=== PATIENT | female | born 1940 | race African-American/Black ===

== ENCOUNTER 2022-10-26 22:54 | Inpatient (IN) | payer MEDICAID ==
[~2022-10-26] VITALS: Ht 165.1 cm; Wt 66.7 kg
[2022-10-27 00:21] LABS: BASOPHILS % 0.6 % (0.0-2.0); HEMATOCRIT. 38.5 % (36.0-48.0); HEMOGLOBIN. 13.2 g/dL (12.0-16.0); LYMPHOCYTES % 36.8 % (20.0-50.0); MEAN CORPUSCULAR HEMOGLOBIN 31.5 pg (28.0-32.0); MEAN CORPUSCULAR VOLUME 92.1 fL (81.0-99.0); MEAN PLATELET VOLUME 9.7 fl (7.4-10.4); MONOCYTES % 14.5 % (2.0-8.0); NEUTROPHILS % 48.1 % (40.0-76.0); PLATELET 120 x1000/uL (130-400); RED BLOOD CELL COUNT 4.18 mill/uL (4.2-5.4)
[2022-10-27 00:25] LABS: CHLORIDE 104 mEq/L (98-107)
[2022-10-27 01:38] LABS: CREATINE KINASE 7625 IU/L (26-192)
[2022-10-27] MEDS ORDERED: SODIUM CHLORIDE 0.9% 1,000 ML IV ONE (03:30)
[2022-10-27] MEDS ORDERED: ONDANSETRON HCL 4MG/2ML INJ IV PRN (08:30)
[2022-10-27 10:39] VITALS: BP 148/68
[2022-10-27 10:40] VITALS: BP 148/68
[2022-10-27 12:00] VITALS: BP 136/76
[2022-10-27] MEDS: SODIUM CHLORIDE 0.9% 1,000 ML IV SCH ×2 (12:01→22:00)
[2022-10-27] MEDS: ENOXAPARIN 40MG/0.4ML SYR SUBCUT SCH (12:31)
[2022-10-27 16:00] VITALS: BP 147/66
[2022-10-27 16:26] LABS: CLARITY URINE CLOUDY (CLEAR); COLOR URINE DARK YELLOW (YELLOW); KETONES URINE NEGATIVE (NEGATIVE); LEUKOCYTE ESTERASE URINE 1+ (NEGATIVE); NITRITE URINE NEGATIVE (NEGATIVE); OCCULT BLOOD URINE 3+ (NEGATIVE); PH URINE 5.5 (4.5-8.0); PROTEIN URINE 3+ (NEGATIVE); SPECIFIC GRAVITY URINE 1.031 (1.005-1.030)
[2022-10-27] MEDS ORDERED: TIMO5DRO32 EACHEYE (18:00)
[2022-10-27] MEDS ORDERED: LATA2.5D4 EACHEYE (18:00)
[2022-10-27] MEDS ORDERED: B1/B1TAB5 MT (18:00)
[2022-10-27] MEDS ORDERED: SIME80TA15 PO (18:00)
[2022-10-27] MEDS ORDERED: ATOR20TA65 MT (18:00)
[2022-10-27] MEDS ORDERED: OMEP20CA14 MT (18:00)
[2022-10-27 20:00] VITALS: BP 142/69
[2022-10-28] VITALS: BP 151/81
[2022-10-28 04:00] VITALS: BP 138/65
[2022-10-28 06:03] LABS: CHLORIDE 108 mEq/L (98-107)
[2022-10-28 06:07] LABS: BASOPHILS % 0.5 % (0.0-2.0); HEMATOCRIT. 39.1 % (36.0-48.0); HEMOGLOBIN. 13.3 g/dL (12.0-16.0); LYMPHOCYTES % 43.4 % (20.0-50.0); MEAN CORPUSCULAR HEMOGLOBIN 31.5 pg (28.0-32.0); MEAN CORPUSCULAR VOLUME 92.3 fL (81.0-99.0); MEAN PLATELET VOLUME 10.4 fl (7.4-10.4); MONOCYTES % 13.3 % (2.0-8.0); NEUTROPHILS % 42.8 % (40.0-76.0); PLATELET 100 x1000/uL (130-400); RED BLOOD CELL COUNT 4.23 mill/uL (4.2-5.4); RED CELL DISTRIBUTION WIDTH 21.4 % (11.6-14.6)
[2022-10-28 06:43] LABS: CREATINE KINASE 5509 IU/L (26-192)
[2022-10-28 08:00] VITALS: BP 111/66
[2022-10-28] MEDS: SODIUM CHLORIDE 0.9% 1,000 ML IV SCH ×2 (08:09→17:07)
[2022-10-28 12:00] VITALS: BP 165/72
[2022-10-28] MEDS: LOSARTAN POTASSIUM 100 MG TABLET PO SCH (13:19)
[2022-10-28] MEDS: ENOXAPARIN 40MG/0.4ML SYR SUBCUT SCH (13:19)
[2022-10-28 16:00] VITALS: BP 155/74
[2022-10-28] MEDS ORDERED: SERTRALINE HCL 50MG TABLET PO SCH (16:30)
[2022-10-28 20:00] VITALS: BP 158/73
[2022-10-29] VITALS: BP 150/63
[2022-10-29] MEDS: SODIUM CHLORIDE 0.9% 1,000 ML IV SCH (01:20)
[2022-10-29 04:00] VITALS: BP 147/72
[2022-10-29 08:00] VITALS: BP 145/66
[2022-10-29] MEDS: LOSARTAN POTASSIUM 100 MG TABLET PO SCH (08:42)
[2022-10-29 12:00] VITALS: BP 140/66
[2022-10-29] MEDS: ENOXAPARIN 40MG/0.4ML SYR SUBCUT SCH (12:05)
[2022-10-29] MEDS: FUROSEMIDE 40MG/4ML VIAL IVP SCH ×2 (13:13→17:32)
[2022-10-29 14:12] LABS: INR 1.4; PROTHROMBIN TIME 14.9 sec (9.6-11.0)
[2022-10-29 14:39] LABS: HEPATITIS B SURFACE ANTIGEN NEGATIVE
[2022-10-29 16:00] VITALS: BP 140/81
[2022-10-29 20:00] VITALS: BP 139/56
[2022-10-30] VITALS: BP 149/62
[2022-10-30 04:00] VITALS: BP 130/68
[2022-10-30] MEDS: FUROSEMIDE 40MG/4ML VIAL IVP SCH ×2 (05:11→17:13)
[2022-10-30 06:17] LABS: BASOPHILS % 0.8 % (0.0-2.0); HEMATOCRIT. 39.7 % (36.0-48.0); HEMOGLOBIN. 13.3 g/dL (12.0-16.0); LYMPHOCYTES % 27.3 % (20.0-50.0); MEAN CORPUSCULAR HEMOGLOBIN 31.4 pg (28.0-32.0); MEAN CORPUSCULAR VOLUME 93.7 fL (81.0-99.0); MEAN PLATELET VOLUME 10.3 fl (7.4-10.4); MONOCYTES % 9.5 % (2.0-8.0); NEUTROPHILS % 62.4 % (40.0-76.0); PLATELET 110 x1000/uL (130-400); RED BLOOD CELL COUNT 4.24 mill/uL (4.2-5.4); RED CELL DISTRIBUTION WIDTH 21.2 % (11.6-14.6)
[2022-10-30 08:00] VITALS: BP 142/68
[2022-10-30 08:09] LABS: CHLORIDE 106 mEq/L (98-107)
[2022-10-30] MEDS: LOSARTAN POTASSIUM 100 MG TABLET PO SCH (09:40)
[2022-10-30 12:00] VITALS: BP 133/66
[2022-10-30] MEDS ORDERED: FUROSEMIDE 40MG/4ML VIAL IVP NR (12:45)
[2022-10-30] MEDS ORDERED: METOLAZONE 2.5MG TABLET PO NR (12:45)
[2022-10-30] MEDS: ENOXAPARIN 40MG/0.4ML SYR SUBCUT SCH (12:50)
[2022-10-30 16:00] VITALS: BP 135/58
[2022-10-31] VITALS: BP 124/67
[2022-10-31 04:00] VITALS: BP 117/51
[2022-10-31] MEDS: FUROSEMIDE 40MG/4ML VIAL IVP SCH ×2 (05:15→17:06)
[2022-10-31 08:00] VITALS: BP 128/53
[2022-10-31] MEDS: LOSARTAN POTASSIUM 100 MG TABLET PO SCH (09:05)
[2022-10-31] MEDS ORDERED: METOLAZONE 2.5MG TABLET PO NR (11:30)
[2022-10-31 12:00] VITALS: BP 142/66
[2022-10-31] MEDS: ENOXAPARIN 40MG/0.4ML SYR SUBCUT SCH (12:13)
[2022-10-31 13:12] LABS: CHLORIDE 99 mEq/L (98-107)
[2022-10-31 16:00] VITALS: BP 143/63
[2022-10-31 20:00] VITALS: BP 123/63
[2022-11-01] VITALS: BP 123/62
[2022-11-01 04:00] VITALS: BP 136/56
[2022-11-01] MEDS: FUROSEMIDE 40MG/4ML VIAL IVP SCH ×2 (06:08→22:00)
[2022-11-01 08:00] VITALS: BP 128/53
[2022-11-01] MEDS: LOSARTAN POTASSIUM 100 MG TABLET PO SCH (09:01)
[2022-11-01] MEDS: ENOXAPARIN 40MG/0.4ML SYR SUBCUT SCH (14:16)
[2022-11-01] MEDS: METHYLPREDNISOLONE SOD SUCC 40 MG/ML VIAL IV SCH ×2 (14:16→22:00)
[2022-11-01 16:00] VITALS: BP 103/46
[2022-11-01 18:21] LABS: CHLORIDE 96 mEq/L (98-107)
[2022-11-01 20:00] VITALS: BP 128/65
[2022-11-01] MEDS: FAMOTIDINE 20MG TABLET PO SCH (22:00)
[2022-11-02] VITALS: BP 125/62
[2022-11-02 04:00] VITALS: BP 133/55
[2022-11-02] MEDS: FUROSEMIDE 40MG/4ML VIAL IVP SCH (06:05)
[2022-11-02] MEDS: METHYLPREDNISOLONE SOD SUCC 40 MG/ML VIAL IV SCH ×3 (06:05→21:23)
[2022-11-02 08:00] VITALS: BP 133/62
[2022-11-02] MEDS: LOSARTAN POTASSIUM 100 MG TABLET PO SCH (10:00)
[2022-11-02 12:00] VITALS: BP 130/65
[2022-11-02] MEDS: ENOXAPARIN 40MG/0.4ML SYR SUBCUT SCH (15:06)
[2022-11-02 16:00] VITALS: BP 111/62
[2022-11-02 20:00] VITALS: BP 132/62
[2022-11-02] MEDS: FAMOTIDINE 20MG TABLET PO SCH (21:23)
[2022-11-03] VITALS: BP 133/63
[2022-11-03] MEDS: METHYLPREDNISOLONE SOD SUCC 40 MG/ML VIAL IV SCH ×2 (06:00→14:01)
[2022-11-03 08:00] VITALS: BP 138/61
[2022-11-03] MEDS: LOSARTAN POTASSIUM 100 MG TABLET PO SCH (11:39)
[2022-11-03 12:00] VITALS: BP 145/73
[2022-11-03] MEDS: ENOXAPARIN 40MG/0.4ML SYR SUBCUT SCH (13:07)
[2022-11-03 16:00] VITALS: BP 138/70
[2022-11-03 20:00] VITALS: BP 147/71
[2022-11-03] MEDS: FAMOTIDINE 20MG TABLET PO SCH (21:55)
[2022-11-04] VITALS: BP 137/60
[2022-11-04] MEDS: METHYLPREDNISOLONE SOD SUCC 40 MG/ML VIAL IV SCH ×4 (00:19→18:18)
[2022-11-04 04:00] VITALS: BP 138/65
[2022-11-04 07:30] LABS: BASOPHILS % 0.3 % (0.0-2.0); HEMATOCRIT. 43.4 % (36.0-48.0); HEMOGLOBIN. 14.6 g/dL (12.0-16.0); LYMPHOCYTES % 16.3 % (20.0-50.0); MEAN CORPUSCULAR VOLUME 95.2 fL (81.0-99.0); MEAN PLATELET VOLUME 10.1 fl (7.4-10.4); MONOCYTES % 7.1 % (2.0-8.0); NEUTROPHILS % 76.3 % (40.0-76.0); PLATELET 159 x1000/uL (130-400); RED BLOOD CELL COUNT 4.55 mill/uL (4.2-5.4); RED CELL DISTRIBUTION WIDTH 21.2 % (11.6-14.6)
[2022-11-04 07:45] LABS: CHLORIDE 94 mEq/L (98-107)
[2022-11-04 08:00] VITALS: BP 124/57
[2022-11-04] MEDS: LOSARTAN POTASSIUM 100 MG TABLET PO SCH (08:18)
[2022-11-04 12:00] VITALS: BP 123/52
[2022-11-04] MEDS: ENOXAPARIN 40MG/0.4ML SYR SUBCUT SCH (15:14)
[2022-11-04 16:00] VITALS: BP 138/55
[2022-11-04 18:12] LABS: CREATINE KINASE 502 IU/L (26-192)
[2022-11-04 20:00] VITALS: BP 116/59
[2022-11-04] MEDS: FAMOTIDINE 20MG TABLET PO SCH (21:11)
[2022-11-04] MEDS: HYDROCODONE/ACETAMINOPHEN 5/325MG TABLET PO PRN (21:12)
[2022-11-05] VITALS: BP 120/77
[2022-11-05] MEDS: METHYLPREDNISOLONE SOD SUCC 40 MG/ML VIAL IV SCH ×4 (01:39→17:58)
[2022-11-05 04:00] VITALS: BP 120/77
[2022-11-05 08:00] VITALS: BP 130/64
[2022-11-05] MEDS: LOSARTAN POTASSIUM 100 MG TABLET PO SCH (09:13)
[2022-11-05] MEDS ORDERED: DEXTROSE 50% WATER 50ML SYRINGE IV PRN (09:15)
[2022-11-05 11:49] VITALS: BP 135/67
[2022-11-05] MEDS: ENOXAPARIN 40MG/0.4ML SYR SUBCUT SCH (12:56)
[2022-11-05] MEDS: BLOOD SUGAR DIAGNOSTIC STRIP TEST SCH ×3 (12:56→21:00)
[2022-11-05] MEDS: INSULIN LISPRO 100 UNITS/ML SUBCUT SCH ×3 (13:18→21:05)
[2022-11-05 15:31] VITALS: BP 135/62
[2022-11-05] MEDS ORDERED: LACTULOSE 20G/30ML UDC PO PRN (16:15)
[2022-11-05 20:00] VITALS: BP 138/74
[2022-11-05] MEDS ORDERED: NALOXONE HCL 0.4MG/ML VIAL IV PRN (20:45)
[2022-11-05] MEDS: FAMOTIDINE 20MG TABLET PO SCH (21:05)
[2022-11-05] MEDS: LATANOPROST 0.005% OPHTH DROPS 2.5ML EACHEYE SCH (21:08)
[2022-11-06] VITALS: BP 130/72
[2022-11-06] MEDS: METHYLPREDNISOLONE SOD SUCC 40 MG/ML VIAL IV SCH ×5 (00:25→23:59)
[2022-11-06] MEDS: BLOOD SUGAR DIAGNOSTIC STRIP TEST SCH ×4 (06:36→20:16)
[2022-11-06 07:42] LABS: CHLORIDE 95 mEq/L (98-107)
[2022-11-06 08:00] VITALS: BP 137/84
[2022-11-06] MEDS: TIMOLOL MALEATE 0.5% OPHTH DROPS 5ML EACHEYE SCH (08:34)
[2022-11-06] MEDS: DOCUSATE SODIUM 250MG CAPSULE PO SCH (08:34)
[2022-11-06] MEDS: LOSARTAN POTASSIUM 100 MG TABLET PO SCH (08:34)
[2022-11-06] MEDS: INSULIN LISPRO 100 UNITS/ML SUBCUT SCH ×4 (09:52→20:36)
[2022-11-06 10:08] LABS: ANTI-DNA DOUBLE STRANDED QUANT < 1 IU/mL (0-9); RNP ANTIBODY 0.7 AI (0.0-0.9)
[2022-11-06 12:00] VITALS: BP 143/70
[2022-11-06] MEDS: FOLIC ACID 1MG TABLET PO SCH (12:40)
[2022-11-06] MEDS ORDERED: METHOTREXATE SODIUM 2 . 5MG TABLET PO SCH ×3 (13:00→22:00)
[2022-11-06] MEDS: ENOXAPARIN 40MG/0.4ML SYR SUBCUT SCH (13:54)
[2022-11-06 16:00] VITALS: BP 112/57
[2022-11-06] MEDS: LATANOPROST 0.005% OPHTH DROPS 2.5ML EACHEYE SCH (20:35)
[2022-11-06] MEDS: FAMOTIDINE 20MG TABLET PO SCH (20:35)
[2022-11-07] MEDS: HYDROCODONE/ACETAMINOPHEN 5/325MG TABLET PO PRN ×3 (03:51→10:36)
[2022-11-07 04:00] VITALS: BP 128/72
[2022-11-07] MEDS: METHYLPREDNISOLONE SOD SUCC 40 MG/ML VIAL IV SCH ×3 (05:18→18:44)
[2022-11-07] MEDS: BLOOD SUGAR DIAGNOSTIC STRIP TEST SCH ×4 (07:20→21:56)
[2022-11-07] MEDS: INSULIN LISPRO 100 UNITS/ML SUBCUT SCH ×4 (07:50→22:40)
[2022-11-07 08:00] VITALS: BP 128/77
[2022-11-07] MEDS: DOCUSATE SODIUM 250MG CAPSULE PO SCH (10:19)
[2022-11-07] MEDS: FOLIC ACID 1MG TABLET PO SCH (10:19)
[2022-11-07] MEDS: TIMOLOL MALEATE 0.5% OPHTH DROPS 5ML EACHEYE SCH (10:20)
[2022-11-07] MEDS: LOSARTAN POTASSIUM 100 MG TABLET PO SCH (10:32)
[2022-11-07 12:00] VITALS: BP 134/66
[2022-11-07] MEDS: ENOXAPARIN 40MG/0.4ML SYR SUBCUT SCH (14:43)
[2022-11-07 16:00] VITALS: BP 128/60
[2022-11-07 20:00] VITALS: BP 144/69
[2022-11-07] MEDS: LATANOPROST 0.005% OPHTH DROPS 2.5ML EACHEYE SCH (21:58)
[2022-11-07] MEDS: FAMOTIDINE 20MG TABLET PO SCH (21:58)
[2022-11-08] VITALS: BP 151/77
[2022-11-08] MEDS: METHYLPREDNISOLONE SOD SUCC 40 MG/ML VIAL IV SCH ×4 (00:57→18:04)
[2022-11-08 04:00] VITALS: BP 151/70
[2022-11-08 04:12] LABS: ANGIOTENSION CONVERTING ENZYME 94 U/L (14-82)
[2022-11-08] MEDS: BLOOD SUGAR DIAGNOSTIC STRIP TEST SCH ×4 (07:20→20:33)
[2022-11-08] MEDS: PREDNISONE 20MG TABLET PO SCH ×3 (07:50→17:50)
[2022-11-08 08:00] VITALS: BP 147/72
[2022-11-08] MEDS: DOCUSATE SODIUM 250MG CAPSULE PO SCH (09:20)
[2022-11-08] MEDS: LOSARTAN POTASSIUM 100 MG TABLET PO SCH (09:20)
[2022-11-08] MEDS: FOLIC ACID 1MG TABLET PO SCH (09:20)
[2022-11-08] MEDS: TIMOLOL MALEATE 0.5% OPHTH DROPS 5ML EACHEYE SCH (09:22)
[2022-11-08] MEDS: INSULIN LISPRO 100 UNITS/ML SUBCUT SCH ×4 (09:41→20:33)
[2022-11-08 12:00] VITALS: BP 153/70
[2022-11-08] MEDS: ENOXAPARIN 40MG/0.4ML SYR SUBCUT SCH (13:07)
[2022-11-08 15:06] LABS: HLA CLASS 1 ANTIBODY Negative (Negative); IIb/IIIa ANTIBODY Positive (Negative); Ia/IIa ANTIBODY Negative (Negative); Ib/IX ANTIBODY Negative (Negative)
[2022-11-08 16:00] VITALS: BP 135/56
[2022-11-08 17:08] LABS: ANA IFA Positive (.)
[2022-11-08 20:00] VITALS: BP 140/69
[2022-11-08] MEDS: FAMOTIDINE 20MG TABLET PO SCH (20:31)
[2022-11-08] MEDS: LATANOPROST 0.005% OPHTH DROPS 2.5ML EACHEYE SCH (21:15)
[2022-11-09] VITALS: BP 140/77
[2022-11-09 04:00] VITALS: BP 141/74
[2022-11-09] MEDS: BLOOD SUGAR DIAGNOSTIC STRIP TEST SCH ×4 (07:42→21:00)
[2022-11-09 08:00] VITALS: BP 143/79
[2022-11-09] MEDS: PREDNISONE 20MG TABLET PO SCH ×2 (08:25→18:24)
[2022-11-09] MEDS: FOLIC ACID 1MG TABLET PO SCH (08:25)
[2022-11-09] MEDS: DOCUSATE SODIUM 250MG CAPSULE PO SCH (08:25)
[2022-11-09] MEDS: LOSARTAN POTASSIUM 100 MG TABLET PO SCH (08:26)
[2022-11-09] MEDS: INSULIN LISPRO 100 UNITS/ML SUBCUT SCH ×4 (08:29→23:47)
[2022-11-09] MEDS: TIMOLOL MALEATE 0.5% OPHTH DROPS 5ML EACHEYE SCH (09:00)
[2022-11-09 12:00] VITALS: BP 136/67
[2022-11-09 16:00] VITALS: BP 134/94
[2022-11-09] MEDS: ENOXAPARIN 40MG/0.4ML SYR SUBCUT SCH (18:24)
[2022-11-09 20:00] VITALS: BP 119/58
[2022-11-09] MEDS: LATANOPROST 0.005% OPHTH DROPS 2.5ML EACHEYE SCH (21:22)
[2022-11-09] MEDS: FAMOTIDINE 20MG TABLET PO SCH (21:22)
[2022-11-09 21:28] LABS: BASOPHILS % 0.2 % (0.0-2.0); EOSINOPHILS % 0.1 % (0.0-5.0); HEMATOCRIT. 52.2 % (36.0-48.0); HEMOGLOBIN. 17.4 g/dL (12.0-16.0); LYMPHOCYTES % 23.7 % (20.0-50.0); MEAN CORPUSCULAR VOLUME 98.6 fL (81.0-99.0); MEAN PLATELET VOLUME 9.5 fl (7.4-10.4); MONOCYTES % 9.1 % (2.0-8.0); NEUTROPHILS % 66.9 % (40.0-76.0); PLATELET 97 x1000/uL (130-400); RED BLOOD CELL COUNT 5.29 mill/uL (4.2-5.4); RED CELL DISTRIBUTION WIDTH 20.3 % (11.6-14.6)
[2022-11-09 21:42] LABS: CHLORIDE 92 mEq/L (98-107)
[2022-11-10] VITALS: BP 121/62
[2022-11-10] MEDS: ACETAMINOPHEN 325MG TABLET PO PRN (02:53)
[2022-11-10 04:00] VITALS: BP 137/69
[2022-11-10] MEDS: INSULIN LISPRO 100 UNITS/ML SUBCUT SCH ×4 (07:50→21:10)
[2022-11-10 08:00] VITALS: BP 135/65
[2022-11-10] MEDS: BLOOD SUGAR DIAGNOSTIC STRIP TEST SCH ×4 (08:11→21:11)
[2022-11-10] MEDS: TIMOLOL MALEATE 0.5% OPHTH DROPS 5ML EACHEYE SCH (10:49)
[2022-11-10] MEDS: DOCUSATE SODIUM 250MG CAPSULE PO SCH (10:49)
[2022-11-10] MEDS: FOLIC ACID 1MG TABLET PO SCH (10:49)
[2022-11-10] MEDS: PREDNISONE 20MG TABLET PO SCH ×3 (10:49→18:33)
[2022-11-10] MEDS: LOSARTAN POTASSIUM 100 MG TABLET PO SCH (10:50)
[2022-11-10 12:00] VITALS: BP 131/59
[2022-11-10] MEDS: ENOXAPARIN 40MG/0.4ML SYR SUBCUT SCH (14:26)
[2022-11-10 16:00] VITALS: BP 110/53
[2022-11-10 20:00] VITALS: BP 105/60
[2022-11-10] MEDS: FAMOTIDINE 20MG TABLET PO SCH (21:00)
[2022-11-10] MEDS: LATANOPROST 0.005% OPHTH DROPS 2.5ML EACHEYE SCH (21:10)
[2022-11-11] VITALS: BP 111/59
[2022-11-11 04:00] VITALS: BP 134/75
[2022-11-11] MEDS: BLOOD SUGAR DIAGNOSTIC STRIP TEST SCH ×3 (07:20→21:37)
[2022-11-11] MEDS: PREDNISONE 20MG TABLET PO SCH (07:50)
[2022-11-11 08:00] VITALS: BP 126/57
[2022-11-11] MEDS: DOCUSATE SODIUM 250MG CAPSULE PO SCH (09:06)
[2022-11-11] MEDS: FOLIC ACID 1MG TABLET PO SCH (09:06)
[2022-11-11] MEDS: LOSARTAN POTASSIUM 100 MG TABLET PO SCH (09:06)
[2022-11-11] MEDS: TIMOLOL MALEATE 0.5% OPHTH DROPS 5ML EACHEYE SCH (09:07)
[2022-11-11 12:00] VITALS: BP 119/64
[2022-11-11] MEDS: INSULIN LISPRO 100 UNITS/ML SUBCUT SCH ×3 (12:00→21:00)
[2022-11-11] MEDS: ENOXAPARIN 40MG/0.4ML SYR SUBCUT SCH (13:00)
[2022-11-11 16:00] VITALS: BP 101/59
[2022-11-11 20:00] VITALS: BP 132/59
[2022-11-11] MEDS: LATANOPROST 0.005% OPHTH DROPS 2.5ML EACHEYE SCH (21:23)
[2022-11-11] MEDS: ACETAMINOPHEN 325MG TABLET PO PRN (22:09)
[2022-11-11] MEDS: FAMOTIDINE 20MG TABLET PO SCH (22:09)
[2022-11-12] VITALS: BP 114/46
[2022-11-12 04:00] VITALS: BP 121/50
[2022-11-12] MEDS: BLOOD SUGAR DIAGNOSTIC STRIP TEST SCH ×2 (06:27→21:34)
[2022-11-12 07:01] LABS: BASOPHILS % 0.2 % (0.0-2.0); EOSINOPHILS % 0.3 % (0.0-5.0); HEMATOCRIT. 44.6 % (36.0-48.0); HEMOGLOBIN. 15.4 g/dL (12.0-16.0); LYMPHOCYTES % 35.4 % (20.0-50.0); MEAN CORPUSCULAR HEMOGLOBIN 33.2 pg (28.0-32.0); MEAN PLATELET VOLUME 9.6 fl (7.4-10.4); NEUTROPHILS % 54.1 % (40.0-76.0); PLATELET 114 x1000/uL (130-400); RED BLOOD CELL COUNT 4.64 mill/uL (4.2-5.4); RED CELL DISTRIBUTION WIDTH 18.1 % (11.6-14.6)
[2022-11-12 07:38] LABS: CHLORIDE 92 mEq/L (98-107)
[2022-11-12 08:00] VITALS: BP 115/61
[2022-11-12] MEDS: TIMOLOL MALEATE 0.5% OPHTH DROPS 5ML EACHEYE SCH (09:00)
[2022-11-12] MEDS: DOCUSATE SODIUM 250MG CAPSULE PO SCH (10:24)
[2022-11-12] MEDS: LOSARTAN POTASSIUM 100 MG TABLET PO SCH (10:24)
[2022-11-12] MEDS: ACETAMINOPHEN 325MG TABLET PO PRN (10:24)
[2022-11-12] MEDS: FOLIC ACID 1MG TABLET PO SCH (10:25)
[2022-11-12 12:00] VITALS: BP 115/55
[2022-11-12] MEDS: INSULIN LISPRO 100 UNITS/ML SUBCUT SCH ×3 (12:20→21:00)
[2022-11-12] MEDS: ENOXAPARIN 40MG/0.4ML SYR SUBCUT SCH (13:41)
[2022-11-12 16:00] VITALS: BP 100/51
[2022-11-12 20:00] VITALS: BP 126/62
[2022-11-12] MEDS: SODIUM CHLORIDE 0.9% 1,000 ML IV SCH (21:00)
[2022-11-12] MEDS: FAMOTIDINE 20MG TABLET PO SCH (21:34)
[2022-11-12] MEDS: LATANOPROST 0.005% OPHTH DROPS 2.5ML EACHEYE SCH (21:34)
[2022-11-13] VITALS: BP 122/54
[2022-11-13 04:00] VITALS: BP 114/50
[2022-11-13] MEDS: BLOOD SUGAR DIAGNOSTIC STRIP TEST SCH ×4 (07:20→20:10)
[2022-11-13] MEDS: INSULIN LISPRO 100 UNITS/ML SUBCUT SCH ×4 (07:50→20:11)
[2022-11-13 08:00] VITALS: BP 109/54
[2022-11-13] MEDS: TIMOLOL MALEATE 0.5% OPHTH DROPS 5ML EACHEYE SCH (09:42)
[2022-11-13] MEDS: LOSARTAN POTASSIUM 100 MG TABLET PO SCH (09:42)
[2022-11-13] MEDS: DOCUSATE SODIUM 250MG CAPSULE PO SCH (09:42)
[2022-11-13] MEDS: FOLIC ACID 1MG TABLET PO SCH (09:42)
[2022-11-13] MEDS ORDERED: METHOTREXATE SODIUM 2 . 5MG TABLET PO SCH ×3 (10:00→21:00)
[2022-11-13] MEDS: SODIUM CHLORIDE 0.9% 1,000 ML IV SCH (10:45)
[2022-11-13 12:00] VITALS: BP 106/55
[2022-11-13] MEDS: ENOXAPARIN 40MG/0.4ML SYR SUBCUT SCH (13:05)
[2022-11-13 16:00] VITALS: BP 103/50
[2022-11-13 20:00] VITALS: BP 101/45
[2022-11-13] MEDS: LATANOPROST 0.005% OPHTH DROPS 2.5ML EACHEYE SCH (20:21)
[2022-11-13] MEDS: FAMOTIDINE 20MG TABLET PO SCH (20:21)
[2022-11-13] MEDS: ACETAMINOPHEN 325MG TABLET PO PRN (20:22)
[2022-11-14] MEDS: SODIUM CHLORIDE 0.9% 1,000 ML IV SCH (03:55)
[2022-11-14] MEDS: BLOOD SUGAR DIAGNOSTIC STRIP TEST SCH ×4 (05:36→21:00)
[2022-11-14] MEDS: INSULIN LISPRO 100 UNITS/ML SUBCUT SCH ×4 (05:36→21:00)
[2022-11-14] MEDS: FOLIC ACID 1MG TABLET PO SCH (09:00)
[2022-11-14] MEDS: TIMOLOL MALEATE 0.5% OPHTH DROPS 5ML EACHEYE SCH (09:00)
[2022-11-14] MEDS: LOSARTAN POTASSIUM 100 MG TABLET PO SCH (09:00)
[2022-11-14] MEDS: DOCUSATE SODIUM 250MG CAPSULE PO SCH (09:00)
[2022-11-14] MEDS: ACETAMINOPHEN 325MG TABLET PO PRN ×2 (10:11→17:42)
[2022-11-14] MEDS: BUPROPION HCL 75MG TABLET PO SCH ×2 (12:15→17:41)
[2022-11-14] MEDS: PREDNISONE 20MG TABLET PO SCH ×2 (12:53→17:41)
[2022-11-14] MEDS: ENOXAPARIN 40MG/0.4ML SYR SUBCUT SCH (13:00)
[2022-11-14 16:00] VITALS: BP 122/50
[2022-11-14 20:00] VITALS: BP 121/63
[2022-11-14] MEDS: LATANOPROST 0.005% OPHTH DROPS 2.5ML EACHEYE SCH (21:00)
[2022-11-15] VITALS (7 sets, daily range): BP systolic 109–134; BP diastolic 50–70
[2022-11-15] MEDS: MIRTAZAPINE 15MG TABLET PO SCH ×2 (00:07→20:37)
[2022-11-15] MEDS: FAMOTIDINE 20MG TABLET PO SCH ×2 (00:08→20:36)
[2022-11-15] MEDS: SODIUM CHLORIDE 0.9% 1,000 ML IV SCH (02:45)
[2022-11-15] MEDS: BLOOD SUGAR DIAGNOSTIC STRIP TEST SCH ×4 (06:44→21:00)
[2022-11-15] MEDS: PREDNISONE 20MG TABLET PO SCH ×3 (06:48→17:23)
[2022-11-15] MEDS: INSULIN LISPRO 100 UNITS/ML SUBCUT SCH ×4 (06:54→21:00)
[2022-11-15] MEDS: DOCUSATE SODIUM 250MG CAPSULE PO SCH (09:00)
[2022-11-15] MEDS: BUPROPION HCL 75MG TABLET PO SCH ×2 (10:46→17:23)
[2022-11-15] MEDS: FOLIC ACID 1MG TABLET PO SCH (10:48)
[2022-11-15] MEDS: LOSARTAN POTASSIUM 100 MG TABLET PO SCH (10:48)
[2022-11-15] MEDS: ENOXAPARIN 40MG/0.4ML SYR SUBCUT SCH (14:12)
[2022-11-15] MEDS ORDERED: SODIUM CHLORIDE 0.9% 1,000 ML IV SCH (14:15)
[2022-11-15 20:13] LABS: CHLORIDE 93 mEq/L (98-107)
[2022-11-15] MEDS ORDERED: SODIUM CHLORIDE 3% 500ML IV SOLN IV ONE (21:15)
[2022-11-15] MEDS ORDERED: SODIUM CHLORIDE 3% 500 ML IV ONE (22:30)
[2022-11-15] MEDS: METHYLPREDNISOLONE SOD SUCC 40 MG/ML VIAL IV SCH (22:41)
[2022-11-16] VITALS: BP 130/63
[2022-11-16] MEDS: METHYLPREDNISOLONE SOD SUCC 40 MG/ML VIAL IV SCH ×3 (05:34→22:35)
[2022-11-16] MEDS: BLOOD SUGAR DIAGNOSTIC STRIP TEST SCH ×4 (06:51→21:00)
[2022-11-16] MEDS: INSULIN LISPRO 100 UNITS/ML SUBCUT SCH ×4 (07:15→22:38)
[2022-11-16] MEDS: DOCUSATE SODIUM 250MG CAPSULE PO SCH (07:52)
[2022-11-16] MEDS: BUPROPION HCL 75MG TABLET PO SCH ×2 (07:52→16:02)
[2022-11-16] MEDS: FOLIC ACID 1MG TABLET PO SCH (07:52)
[2022-11-16] MEDS: TIMOLOL MALEATE 0.5% OPHTH DROPS 5ML EACHEYE SCH ×2 (07:52→09:00)
[2022-11-16] MEDS: LOSARTAN POTASSIUM 100 MG TABLET PO SCH (07:52)
[2022-11-16 08:00] VITALS: BP 128/77
[2022-11-16 12:00] VITALS: BP_SYST 120; BP_SYST 153; BP_DIAS 57; BP_DIAS 88
[2022-11-16 12:29] LABS: BASOPHILS % 0.1 % (0.0-2.0); HEMATOCRIT. 45.2 % (36.0-48.0); HEMOGLOBIN. 15.5 g/dL (12.0-16.0); LYMPHOCYTES % 17.4 % (20.0-50.0); MEAN CORPUSCULAR HEMOGLOBIN 33.9 pg (28.0-32.0); MEAN CORPUSCULAR VOLUME 98.9 fL (81.0-99.0); MEAN PLATELET VOLUME 9.1 fl (7.4-10.4); MONOCYTES % 4.7 % (2.0-8.0); NEUTROPHILS % 77.8 % (40.0-76.0); PLATELET 161 x1000/uL (130-400); RED BLOOD CELL COUNT 4.57 mill/uL (4.2-5.4)
[2022-11-16] MEDS: ENOXAPARIN 40MG/0.4ML SYR SUBCUT SCH (12:39)
[2022-11-16 12:57] LABS: CHLORIDE 95 mEq/L (98-107); CREATINE KINASE 238 IU/L (26-192)
[2022-11-16 16:00] VITALS: BP 111/50
[2022-11-16 20:00] VITALS: BP 117/60
[2022-11-16] MEDS: FAMOTIDINE 20MG TABLET PO SCH (22:34)
[2022-11-16] MEDS: MIRTAZAPINE 15MG TABLET PO SCH (22:34)
[2022-11-16] MEDS: LATANOPROST 0.005% OPHTH DROPS 2.5ML EACHEYE SCH (22:58)
[2022-11-17] VITALS: BP 122/80
[2022-11-17 04:00] VITALS: BP 133/74
[2022-11-17] MEDS: METHYLPREDNISOLONE SOD SUCC 40 MG/ML VIAL IV SCH ×3 (06:19→16:58)
[2022-11-17] MEDS: BLOOD SUGAR DIAGNOSTIC STRIP TEST SCH ×4 (06:23→21:00)
[2022-11-17] MEDS: INSULIN LISPRO 100 UNITS/ML SUBCUT SCH ×4 (06:23→21:54)
[2022-11-17 08:00] VITALS: BP_SYST 118; BP_SYST 150; BP_DIAS 44; BP_DIAS 91
[2022-11-17] MEDS: TIMOLOL MALEATE 0.5% OPHTH DROPS 5ML EACHEYE SCH (09:00)
[2022-11-17] MEDS: DOCUSATE SODIUM 250MG CAPSULE PO SCH (10:15)
[2022-11-17] MEDS: FOLIC ACID 1MG TABLET PO SCH (10:15)
[2022-11-17] MEDS: BUPROPION HCL 75MG TABLET PO SCH ×2 (10:15→17:34)
[2022-11-17] MEDS: LOSARTAN POTASSIUM 100 MG TABLET PO SCH (10:42)
[2022-11-17 12:00] VITALS: BP 112/67
[2022-11-17] MEDS: ENOXAPARIN 40MG/0.4ML SYR SUBCUT SCH (13:00)
[2022-11-17 16:00] VITALS: BP 110/58
[2022-11-17 20:00] VITALS: BP 102/50
[2022-11-17] MEDS: FAMOTIDINE 20MG TABLET PO SCH (21:56)
[2022-11-17] MEDS: MIRTAZAPINE 15MG TABLET PO SCH (21:56)
[2022-11-18] VITALS: BP 100/62
[2022-11-18 04:00] VITALS: BP 125/73
[2022-11-18] MEDS: BLOOD SUGAR DIAGNOSTIC STRIP TEST SCH ×3 (06:45→16:45)
[2022-11-18] MEDS: INSULIN LISPRO 100 UNITS/ML SUBCUT SCH ×3 (07:15→17:15)
[2022-11-18 07:36] VITALS: BP 100/62
[2022-11-18 08:00] VITALS: BP 148/61
[2022-11-18] MEDS: METHYLPREDNISOLONE SOD SUCC 40 MG/ML VIAL IV SCH ×2 (08:00→16:00)
[2022-11-18] MEDS: BUPROPION HCL 75MG TABLET PO SCH ×2 (09:16→18:34)
[2022-11-18] MEDS: DOCUSATE SODIUM 250MG CAPSULE PO SCH (09:16)
[2022-11-18] MEDS: LOSARTAN POTASSIUM 100 MG TABLET PO SCH (09:16)
[2022-11-18] MEDS: FOLIC ACID 1MG TABLET PO SCH (09:16)
[2022-11-18 11:59] VITALS: BP 121/64
[2022-11-18] MEDS: TIMOLOL MALEATE 0.5% OPHTH DROPS 5ML EACHEYE SCH (12:15)
[2022-11-18] MEDS: ENOXAPARIN 40MG/0.4ML SYR SUBCUT SCH (13:10)
[2022-11-18 16:00] VITALS: BP 112/76
[2022-11-18 18:27] LABS: CHLORIDE 99 mEq/L (98-107)
[2022-11-18 18:37] LABS: CREATINE KINASE 192 IU/L (26-192)
[2022-11-20] MEDS ORDERED: METHOTREXATE SODIUM/PF 50 MG/2 ML VIAL IM SCH (09:00)
== END 2022-11-18 19:21 | DRG 346 ==
LOC: ER 22:54 → MICUSO 10-27 03:33 → EDBEDREQ 10-27 03:42 → EDBEDREQTM 10-27 03:42 → 7EST 10-27 10:21 → 6EST 11-01 16:04 → 5WST 11-14 13:04
PROVIDERS: ADMIT Internal Medicine; ATTEND Internal Medicine
DX: M33.20 Polymyositis, organ involvement unspecified (principal); G92.8 Other toxic encephalopathy; I50.31 Acute diastolic (congestive) heart failure; E43 Unspecified severe protein-calorie malnutrition; R18.8 Other ascites; D69.6 Thrombocytopenia, unspecified; K74.60 Unspecified cirrhosis of liver; I11.0 Hypertensive heart disease with heart failure; E87.1 Hypo-osmolality and hyponatremia; E88.09 Other disorders of plasma-protein metabolism, not elsewhere classified; I78.8 Other diseases of capillaries; F43.21 Adjustment disorder with depressed mood; Z20.822 Contact with and (suspected) exposure to COVID-19; K59.00 Constipation, unspecified; T38.0X5A Adverse effect of glucocorticoids and synthetic analogues, initial encounter; R73.9 Hyperglycemia, unspecified; D86.9 Sarcoidosis, unspecified; R74.01 Elevation of levels of liver transaminase levels; M32.9 Systemic lupus erythematosus, unspecified; Z68.24 Body mass index [BMI] 24.0-24.9, adult; Y92.89 Other specified places as the place of occurrence of the external cause
CPT/HCPCS: 36415; 71045; 73718; 76700; 80048; 80053; 81003; 82085; 82164; 82550; 82962; 83880; 84134; 84484; 85025; 86022; 86160; 86225; 86235; 86256; 86431; 86705; 86709; 86803; 87340; 87426; 92610; 93005; 93306; 93970; 97110; 97162; 97166; 97530; 97535; 99291; A6261; C1893; C9803; J1650; J1815; J1940; J2920; J7030; J7512; J8610